=== PATIENT | female | born 1955 | race Caucasian/White ===

== ENCOUNTER → 2020-08-21 14:13 | Outpatient (CLI) | payer BC, SELFPAY ==
--- NOTE | 2020-08-21 14:17 | DI.RAD.S_ITS ---
PROCEDURE: XR LUMBAR SPINE 2-3V INDICATIONS: back injury TECHNIQUE: 3 views of the lumbar spine were acquired. COMPARISON: None. FINDINGS: Bones: Transitional anatomy present. There are hypoplastic ribs associated with T12, and partial sacralization of the L5 vertebral body. Wedge-shaped compression fracture of T12 results in 30% anterior height loss without retropulsed fracture fragment. There is appropriate osseous mineralization present. Disc space narrowing and hypertrophic facet joints noted L3-4, L4-5 and L5-S1, and there is grade 1 anterior spondylolisthesis present at L4-5. Soft tissues: Overlying bowel gas pattern is normal. No suspicious soft tissue calcifications. IMPRESSION: 1. T12 compression fracture, uncertain age. 2. Degenerative disc disease and arthropathy the lower lumbar spine resulting in L4-5 anterior spondylolisthesis. 3. Transitional anatomy. Hypoplastic T12 ribs and partial sacralization of the L5 vertebral body Dictated by: Monroe Henning M.D. on 08/21/2020 at 14:35 Approved by: Monroe Henning M.D. on 08/21/2020 at 14:40
== END ==
PROVIDERS: PCP Internal Medicine; Referring Provider Physician Assistant; Visit Provider Physician Assistant
DX: M54.9 Dorsalgia, unspecified (principal); M48.54XA Collapsed vertebra, not elsewhere classified, thoracic region, initial encounter for fracture; M51.37 Other intervertebral disc degeneration, lumbosacral region; M51.36 Other intervertebral disc degeneration, lumbar region; M47.816 Spondylosis without myelopathy or radiculopathy, lumbar region; M47.817 Spondylosis without myelopathy or radiculopathy, lumbosacral region; M43.16 Spondylolisthesis, lumbar region; M43.27 Fusion of spine, lumbosacral region
CPT/HCPCS: 72100

== ENCOUNTER → 2020-09-24 10:48 | Outpatient (CLI) | payer BC, SELFPAY ==
--- NOTE | 2020-09-24 10:49 | DI.CT.S_ITS ---
PROCEDURE: CT CHEST ABD PEL W CON INDICATIONS: Restaging, endometrial cancer. Outside comparison CT scanning has been requested but has not yet become available for review. This study can be supplemented by an addendum report when the comparison studies become available. TECHNIQUE: After the administration of oral and intravenous contrast, axial sections acquired from the supraclavicular neck to the pubic symphysis. Coronal and sagittal reformats were performed. For radiation dose reduction, the following was used: automated exposure control, adjustment of mA and/or kV according to patient size. COMPARISON: None. FINDINGS: Image quality: Excellent. CHEST: Lower Neck: No enlarged lymph nodes. Thyroid: Not well seen. Axillae: No enlarged lymph nodes. Chest Wall: Unremarkable. Lungs and Airways: No consolidation but there are several pulmonary nodules, as discussed: 1. Upper outer right upper lobe series 3, image 78 5 x 7 mm solid noncalcified mildly spiculated nodule. 2. Subpleural lateral left upper lobe nodule, series 3, image 104, mildly lobulated, and measuring up to 1.5 cm in maximal dimension abutting the pleural surface. 3. Centrally cavitary 1.5 by 1.1 cm nodule anterolateral left upper lobe seen on series 3, image 165. 4. . 3 x 4 mm nodule left lower lobe anteriorly, series 3, image 240. Pleura: No pneumothorax or pleural effusions. Heart: Heart size is normal. No pericardial effusion. Thoracic Vessels: The aorta and pulmonary arteries demonstrate normal size. Mediastinum and Josephine: No enlarged lymph nodes. Esophagus: No wall thickening. No hiatal hernia. ABDOMEN: Liver: Unremarkable. Gallbladder: Unremarkable. Biliary ducts: Unremarkable. Pancreas: Unremarkable. Spleen: Unremarkable. Adrenal Glands: Unremarkable. Kidneys and Ureters: Unremarkable. Stomach and Bowel: Stomach, small bowel loops, and colon are unremarkable. Peritoneum: No abnormal intraperitoneal fluid. No free air. Ventral Wall: No hernia. Abdominal Nodes: No retroperitoneal or mesenteric adenopathy by size criteria. Vessels: Aorta and inferior vena cava are normal in size. PELVIS: Pelvic Organs: Unremarkable. Bladder: Unremarkable. Pelvic Nodes: No enlarged lymph nodes. Miscellaneous: No inguinal hernias are seen. Bones: Unremarkable except for a superior endplate mild compression fracture at the low thoracic spine, likely T12, which does not appear to represent a pathologic fracture. IMPRESSION: 1. Four separate pulmonary nodules, worrisome for metastatic disease. 2. Within the chest abdomen and pelvis no additional evidence of metastatic disease is found. 3. What appears to be a likely osteoporotic compression fracture is seen at the upper aspect of what appears to be T12. 4. Please note that there is a comparison study that has been unavailable for review. An addendum to this report can be generated should that study become available. Dictated by: Vic Cummings M.D. on 10/01/2020 at 13:31 Approved by: Vic Cummings M.D. on 10/01/2020 at 14:15
== END ==
PROVIDERS: PCP Internal Medicine; Referring Provider Internal Medicine Medical Oncology; Visit Provider Internal Medicine Medical Oncology
DX: C54.1 Malignant neoplasm of endometrium (principal); R91.8 Other nonspecific abnormal finding of lung field; M48.54XA Collapsed vertebra, not elsewhere classified, thoracic region, initial encounter for fracture
CPT/HCPCS: 71260; 74177

== ENCOUNTER 2020-10-23 10:05 | Emergency (ER) | payer BC, SELFPAY ==
[2020-10-23] VITALS (10 sets, daily range): BP systolic 137–154; BP diastolic 68–80; PULSE 75–94; RESP 15–16; TEMP 37; O2SAT 94–99; BMI 33.3
[2020-10-23 11:22] LABS: Alanine Aminotransferase 18 IU/L (<35); Albumin 4.4 g/dL (3.5-5.0); Albumin Globulin Ratio 1.7 (1.0-2.8); Alkaline Phosphatase 50 U/L (38-126); Aspartate Aminotransferase 24 IU/L (14-36); BUN Creatinine Ratio 38.5 (6-22); Bilirubin Total 0.5 mg/dL (0.2-1.3); Blood Urea Nitrogen 20 mg/dL (7-17); Calcium 9.8 mg/dL (8.4-10.2); Carbon Dioxide 31 mmol/L (22-32); Chloride 102 mmol/L (98-107); Estimated Glomerular Filt Rate > 60.0 mL/min (>60); Globulin 2.6 g/dL (1.7-4.1); Glucose 111 mg/dL (80-110); HEMOLYSIS < 15 (0-50); Lipase 45 U/L (23-300); Sodium 138 mmol/L (137-145)
[2020-10-23 11:27] LABS: Bacteria Urine Occasional (0-1); Culture Indicated Urine Cult Not Indicated; RBC Urine 1-5/HPF (0-5/HPF); Squamous Epithelial Cell Urine 0-1 /HPF (0-5/HPF); WBC Urine 0-1/HPF (0-5/HPF)
[2020-10-23 11:27] LABS: Add Manual Diff / Slide Review NO; Basophils Absolute Auto 0 /uL (0-100); Basophils Percent Auto 0.2 % (0-2); Eosinophils Absolute Auto 0 /uL (0-450); Eosinophils Percent Auto 0.1 % (2-4); Hematocrit 36.8 % (36-46); Hemoglobin 12.5 g/dL (12.0-16.0); Lymphocytes Absolute Auto 300 /uL (1100-4500); Lymphocytes Percent Auto 2.7 % (25-40); Mean Corpuscular HGB Conc 34.1 % (30-36); Mean Corpuscular Hemoglobin 32.9 PG (26-34); Mean Corpuscular Volume 96.5 fL (80-100); Monocytes Absolute Auto 600 /uL (0-900); Monocytes Percent Auto 5.3 % (3-14); Neutrophils Absolute Auto 9900 /uL (1500-7000); Neutrophils Percent Auto 91.7 % (50-75); Platelet Count 349 X10^3/uL (150-400); Red Blood Cell Count 3.81 X10^6/uL (4.0-5.2); White Blood Cell Count 10.8 X10^3/uL (4.5-11.0)
--- NOTE | 2020-10-23 12:30 | DI.CT.S_ITS ---
PROCEDURE: CT KIDNEY URETER BLADDER (KUB) INDICATIONS: possible kidney stone TECHNIQUE: Axial sections were acquired from the lung bases to the pubic symphysis. Coronal and sagittal reformats were performed. For radiation dose reduction, the following was used: automated exposure control, adjustment of mA and/or kV according to patient size. COMPARISON: Outside Facility, RG, CT ABDOMEN/PELVIS WITH CONTRAST, 04/28/2020, 9:45. FINDINGS: Image quality: Excellent. Lung bases: There is elevation of the right hemidiaphragm with atelectasis of the right lung base. Heart: No significant findings. URINARY: Right Kidney: No stones or hydronephrosis. Right Ureter: No hydroureter. Left Kidney: No stones or hydronephrosis. Left Ureter: No hydroureter. Bladder: Normal wall thickness. No stones. ABDOMEN: Liver: Subcentimeter hypodensities in the liver are stable and most likely benign. Gallbladder: Unremarkable. Biliary ducts: Unremarkable. Pancreas: Unremarkable. Spleen: A low-density lesion in the anterior spleen is stable and considered benign. Adrenal Glands: A 1.5 x 1.0 cm nodule is seen in the left adrenal. There is mild nodular thickening of the right adrenal. Stomach and Bowel: Stomach, small bowel loops, and colon are unremarkable. Peritoneum: No abnormal intraperitoneal fluid. No free air. Ventral Wall: No hernia. Abdominal Nodes: No enlarged retroperitoneal or mesenteric lymph nodes. Vessels: Aorta and inferior vena cava are normal in size. Mild aortic atherosclerotic calcifications. There is marked tortuosity of the common iliac arteries. PELVIS: Pelvic Organs: Status post hysterectomy. Pelvic Nodes: Unremarkable. Miscellaneous: No inguinal hernias are seen. Bones: Degenerative changes are seen in the included spine. There is grade 1 anterolisthesis of L4 on L5. Mild compression fracture is seen at the superior endplate of the T12 vertebral body that is new when compared to the CT from 04/28/2020. There is approximately 25 % loss of vertebral body height. There is fatty infiltration of the bilateral gluteus medius and minimus muscles. IMPRESSION: 1. No renal or ureteral calculus or hydronephrosis. 2. Mild T12 compression fracture is new when compared to the CT from 04/28/2020. Dictated by: Jared Gardner M.D. on 10/23/2020 at 13:09 Approved by: Jared Gardner M.D. on 10/23/2020 at 13:22
--- NOTE | 2020-10-23 12:32 | ED_ITS ---
HPI - Abdominal Pain <Won Cotter PA-C - Last Filed: 10/23/20 14:36> General Chief Complaint: Abdominal Pain Stated Complaint: nausea/vomitting, history of cancer and bowel obst Time Seen by Provider: 10/23/20 11:57 Source: patient Mode of arrival: Wheelchair Limitations: no limitations History of Present Illness HPI narrative: Genie presents today with chief complaint abdominal pain and nausea and vomiting that started suddenly at midnight and lasted till about 730 this morning. She reports continued nausea but reports that the pain has improved. She also had urinary frequency at that time. She has not had anything by mouth today because of her persistent nausea. She reports that this feels similar to a bowel obstruction that she experienced but slightly different. She reports that she had a bowel movement this morning and has had an episode of passing gas today. She denies any chest pain, diaphoresis, fever, cough, sore throat, fatigue, shortness of breath, decreased exercise capacity, or any other acute concerns or complaints at this time. Related Data Home Medications Medication Instructions Recorded Confirmed calcium carbonate 600 mg (1,500 1 tab BID 09/16/20 10/21/20 mg)-vitamin D3 200 unit tablet Previous Rx's Medication Instructions Recorded methocarbamol 500 mg tablet 500 - 1,000 mg PO TID PRN #60 tab 09/04/20 cholecalciferol (vitamin D3) 50 50 mcg PO DAILY #90 cap 10/21/20 mcg (2,000 unit) capsule clobetasol 0.05 % topical ointment 1 applic TOPICAL BEDTIME #60 g 10/21/20 hydrochlorothiazide 25 mg tablet 12.5 mg PO BID #90 tab 10/21/20 levothyroxine 112 mcg tablet 112 mcg PO DAILY #90 tab 10/21/20 magnesium chloride 64 mg 128 mg PO BID #180 tab 10/21/20 (magnesium chloride) tablet,delayed release rivaroxaban 10 mg tablet (Xarelto) 10 mg PO DAILY #90 tab 10/21/20 simvastatin 10 mg tablet 10 mg PO DAILY #90 tab 10/21/20 ondansetron 4 mg disintegrating 4 mg PO Q6H PRN #10 tab 10/23/20 tablet Allergies Allergy/AdvReac Type Severity Reaction Status Date / Time carboplatin Allergy Severe Full Body Verified 10/23/20 10:15 Rash oxaliplatin Allergy Severe Anaphylaxsi Verified 10/23/20 10:15 s valacyclovir [From Valtrex] Allergy Intermediate Labored Verified 10/23/20 10:15 Breathing cefuroxime [From Ceftin] AdvReac Severe Diarrhea Verified 10/23/20 10:15 oxycodone AdvReac Intermediate Severe Verified 10/23/20 10:15 Headache/Nausea Review of Systems <Won Cotter PA-C - Last Filed: 10/23/20 14:36> Review of Systems Narrative: As per HPI Patient History <Won Cotter PA-C - Last Filed: 10/23/20 14:36> Medical History (Updated 10/23/20 @ 14:13 by Won Cotter PA-C) Acquired hypothyroidism Acquired lymphedema of leg Compression fracture of T12 vertebra DVT (deep venous thrombosis) Endometrial cancer Essential hypertension GERD without esophagitis H/O adenomatous polyp of colon Hematuria Lichen sclerosus et atrophicus of the vulva Mixed hyperlipidemia Ocular migraine Osteopenia Spondylisthesis SVC syndrome Urinary incontinence Vitreous detachment of both eyes Surgical History (Updated 09/17/20 @ 08:56 by Antonio Barros MD) Status post abdominal hysterectomy and salpingo-oophorectomy (~07/2009) Status post tonsillectomy and adenoidectomy (~1961) Social History Smoking Status: Never smoker Smoking Status: Never smoker Exam <Won Cotter PA-C - Last Filed: 10/23/20 14:36> Narrative Exam Narrative: Exam Narrative: Const General: cooperative, healthy appearing, comfortable, no acute distress, well developed and well groomed Nutritional Appearance: Elevated BMI Orientation: alert and oriented x3 HENMT Head: normal to inspection and atraumatic Ears: hearing grossly normal bilaterally Nose: external nose normal and nares normal Face and sinus: normal facial exam Neck Neck: normal visual inspection and supple Resp Effort & Inspection: normal respiratory effort, able to speak in complete sentences, no audible wheezes, not labored, no nasal flaring and no respiratory distress, clear to auscultation bilaterally Cardiac Regular rate and rhythm, no discernible murmurs, rubs or gallops GI Nondistended, nontender to palpation, normal bowel sounds. No CVA tenderness noted Neuro General: alert, oriented x3, gait normal, tone normal and moves all extremities Cognition: normal cognition Speech: speech normal Gait: normal gait Psych Appearance: grossly normal and well kempt Mental Status: mental status grossly normal Speech and Movement: speech and movement normal Mood: congruent mood Affect: normal affect Initial Vital Signs Initial Vital Signs: Vital Signs Temperature 98.6 F 10/23/20 10:12 Pulse Rate 75 10/23/20 10:12 Respiratory Rate 15 10/23/20 10:12 Blood Pressure 141/80 H 10/23/20 10:12 Pulse Oximetry 96 10/23/20 10:12 <Rupali Cao DO - Last Filed: 10/26/20 15:19> Initial Vital Signs Initial Vital Signs: Vital Signs Temperature 98.6 F 10/23/20 10:12 Pulse Rate 75 10/23/20 10:12 Respiratory Rate 15 10/23/20 10:12 Blood Pressure 141/80 H 10/23/20 10:12 Pulse Oximetry 96 10/23/20 10:12 Course <Won Cotter PA-C - Last Filed: 10/23/20 14:36> Orders Ordered: Discontinued Medications Sodium Chloride (Normal Saline 0.9%) 1,000 mls @ 1,000 mls/hr IV BOLUS ONE Stop: 10/23/20 13:34 Last Infusion: 10/23/20 14:15 Dose: 0 mls/hr Documented by: Admin: 10/23/20 12:55 Dose: 1,000 mls/hr Documented by: SOFÍA Ondansetron HCl (Ondansetron 4 Mg/2 Ml Inj) 4 mg IV Q2HR PRN PRN Reason: Nausea And Vomiting Last Admin: 10/23/20 12:49 Dose: 4 mg Documented by: SOFÍA Vital Signs Vital signs: Vital Signs - 8 hr 10/23/20 10:12 10/23/20 11:06 10/23/20 11:30 Temperature 98.6 F Pulse Rate 75 76 86 Respiratory Rate 15 Blood Pressure 141/80 H 137/68 Pulse Oximetry 96 97 94 10/23/20 12:00 10/23/20 12:30 10/23/20 13:15 Temperature Pulse Rate 81 87 93 H Respiratory Rate 16 Blood Pressure 147/74 H 151/76 H Pulse Oximetry 96 98 95 10/23/20 13:16 10/23/20 13:30 10/23/20 14:00 Temperature Pulse Rate 94 H 86 77 Respiratory Rate Blood Pressure 144/69 H Pulse Oximetry 97 99 97 10/23/20 14:22 Temperature Pulse Rate 76 Respiratory Rate 16 Blood Pressure 154/74 H Pulse Oximetry 99 <Rupali Cao DO - Last Filed: 10/26/20 15:19> Orders Ordered: Discontinued Medications Sodium Chloride (Normal Saline 0.9%) 1,000 mls @ 1,000 mls/hr IV BOLUS ONE Stop: 10/23/20 13:34 Last Infusion: 10/23/20 14:15 Dose: 0 mls/hr Documented by: Admin: 10/23/20 12:55 Dose: 1,000 mls/hr Documented by: SOFÍA Ondansetron HCl (Ondansetron 4 Mg/2 Ml Inj) 4 mg IV Q2HR PRN PRN Reason: Nausea And Vomiting Last Admin: 10/23/20 12:49 Dose: 4 mg Documented by: SOFÍA Vital Signs Vital signs: Vital Signs - 8 hr 10/23/20 10:12 10/23/20 11:06 10/23/20 11:30 Temperature 98.6 F Pulse Rate 75 76 86 Respiratory Rate 15 Blood Pressure 141/80 H 137/68 Pulse Oximetry 96 97 94 10/23/20 12:00 10/23/20 12:30 10/23/20 13:15 Temperature Pulse Rate 81 87 93 H Respiratory Rate 16 Blood Pressure 147/74 H 151/76 H Pulse Oximetry 96 98 95 10/23/20 13:16 10/23/20 13:30 10/23/20 14:00 Temperature Pulse Rate 94 H 86 77 Respiratory Rate Blood Pressure 144/69 H Pulse Oximetry 97 99 97 10/23/20 14:22 Temperature Pulse Rate 76 Respiratory Rate 16 Blood Pressure 154/74 H Pulse Oximetry 99 MDM - Abdominal Pain <Won Cotter PA-C - Last Filed: 10/23/20 14:36> Lab Data Result diagrams: 10/23/20 11:00 10/23/20 11:00 Labs: Lab Results 10/23/20 10/23/20 10/23/20 Range/Units 10:41 11:00 11:00 WBC 10.8 (4.5-11.0) X10^3/uL RBC 3.81 L (4.0-5.2) X10^6/uL Hgb 12.5 (12.0-16.0) g/dL Hct 36.8 (36-46) % MCV 96.5 (80-100) fL MCH 32.9 (26-34) PG MCHC 34.1 (30-36) % RDW 13.0 (11.6-14.8) % Plt Count 349 (150-400) X10^3/uL Neut % (Auto) 91.7 H (50-75) % Lymph % (Auto) 2.7 L (25-40) % Laurel % (Auto) 5.3 (3-14) % Eos % (Auto) 0.1 L (2-4) % Baso % (Auto) 0.2 (0-2) % Neut # (Auto) 9900 H (0803-2627) /uL Lymph # (Auto) 300 L (1942-4768) /uL Laurel # (Auto) 600 (0-900) /uL Eos # (Auto) 0 (0-450) /uL Baso # (Auto) 0 (0-100) /uL Sodium 138 (137-145) mmol/L Potassium 3.0 L (3.4-5.1) mmol/L Chloride 102 (98-107) mmol/L Carbon Dioxide 31 (22-32) mmol/L BUN 20 H (7-17) mg/dL Creatinine 0.52 (0.52-1.04) mg/dL Estimated GFR > 60.0 (>60) mL/min BUN/Creatinine Ratio 38.5 H (6-22) Glucose 111 H (80-110) mg/dL Calcium 9.8 (8.4-10.2) mg/dL Total Bilirubin 0.5 (0.2-1.3) mg/dL AST 24 (14-36) IU/L ALT 18 (<35) IU/L Alkaline Phosphatase 50 (38-126) U/L Total Creatine Kinase (30-135) U/L CK-MB (CK-2) CK-MB (CK-2) Rel Index Troponin I (0.01-0.034) ng/mL Total Protein 7.0 (6.3-8.2) g/dL Albumin 4.4 (3.5-5.0) g/dL Globulin 2.6 (1.7-4.1) g/dL Albumin/Globulin Ratio 1.7 (1.0-2.8) Lipase 45 (23-300) U/L Urine RBC 1-5/hpf (0-5/HPF) Urine WBC 0-1/hpf (0-5/HPF) Ur Squamous Epith Cells 0-1 /hpf (0-5/HPF) Urine Bacteria Occasional (0-1) (None) Ur Culture Indicated? Cult not indicated 10/23/20 Range/Units 11:00 WBC (4.5-11.0) X10^3/uL RBC (4.0-5.2) X10^6/uL Hgb (12.0-16.0) g/dL Hct (36-46) % MCV (80-100) fL MCH (26-34) PG MCHC (30-36) % RDW (11.6-14.8) % Plt Count (150-400) X10^3/uL Neut % (Auto) (50-75) % Lymph % (Auto) (25-40) % Laurel % (Auto) (3-14) % Eos % (Auto) (2-4) % Baso % (Auto) (0-2) % Neut # (Auto) (2111-4608) /uL Lymph # (Auto) (9301-7893) /uL Laurel # (Auto) (0-900) /uL Eos # (Auto) (0-450) /uL Baso # (Auto) (0-100) /uL Sodium (137-145) mmol/L Potassium (3.4-5.1) mmol/L Chloride (98-107) mmol/L Carbon Dioxide (22-32) mmol/L BUN (7-17) mg/dL Creatinine (0.52-1.04) mg/dL Estimated GFR (>60) mL/min BUN/Creatinine Ratio (6-22) Glucose (80-110) mg/dL Calcium (8.4-10.2) mg/dL Total Bilirubin (0.2-1.3) mg/dL AST (14-36) IU/L ALT (<35) IU/L Alkaline Phosphatase (38-126) U/L Total Creatine Kinase 80 (30-135) U/L CK-MB (CK-2) TNP CK-MB (CK-2) Rel Index TNP Troponin I < 0.012 (0.01-0.034) ng/mL Total Protein (6.3-8.2) g/dL Albumin (3.5-5.0) g/dL Globulin (1.7-4.1) g/dL Albumin/Globulin Ratio (1.0-2.8) Lipase (23-300) U/L Urine RBC (0-5/HPF) Urine WBC (0-5/HPF) Ur Squamous Epith Cells (0-5/HPF) Urine Bacteria (None) Ur Culture Indicated? Point of care testing: Urine Dip Bedside Urine Glucose Negative Bedside Urine Bilirubin - Negative Bedside Urine Ketone +++ 80 Urine Specific Owings 1.030 Bedside Urine Occult Blood ++ Bedside Urine pH 6.0 Bedside Urine Protein - Negative Bedside Urine Urobilinogen - Negative Bedside Urine Nitrite - Negative Bedside Urine Leukocytes - Negative Esterase MDM Narrative Medical decision making narrative: Her physical examination is normal with no reproducible abdominal pain, CVA tenderness, or masses noted. She does not have an elevation in her white blood cells. She had hematuria as well as ketonuria in addition to hypokalemia. Her symptoms improved with a single L of normal saline IV as well as Zofran administration here in the emergency department. She is passing gas and does not have any reproducible abdominal pain. I suspect a bowel obstruction is less likely at this time. CT does not show any acute intra-abdominal pathology nor any kidney stones. She does not have any significant evidence of urinary tract infection. Will treat for acute nausea vomiting with strict ER return precautions well described. Patient verbalizes u nderstanding and agrees to plan and has no further concerns at this time. Thank you A [id number] system was used with the dictation of this note. Please disregard any spelling or grammatical errors. <Rupali Cao, DO - Last Filed: 10/26/20 15:19> Lab Data Labs: Lab Results 10/23/20 10/23/20 10/23/20 Range/Units 10:41 11:00 11:00 WBC 10.8 (4.5-11.0) X10^3/uL RBC 3.81 L (4.0-5.2) X10^6/uL Hgb 12.5 (12.0-16.0) g/dL Hct 36.8 (36-46) % MCV 96.5 (80-100) fL MCH 32.9 (26-34) PG MCHC 34.1 (30-36) % RDW 13.0 (11.6-14.8) % Plt Count 349 (150-400) X10^3/uL Neut % (Auto) 91.7 H (50-75) % Lymph % (Auto) 2.7 L (25-40) % Laurel % (Auto) 5.3 (3-14) % Eos % (Auto) 0.1 L (2-4) % Baso % (Auto) 0.2 (0-2) % Neut # (Auto) 9900 H (2176-1148) /uL Lymph # (Auto) 300 L (8811-8457) /uL Laurel # (Auto) 600 (0-900) /uL Eos # (Auto) 0 (0-450) /uL Baso # (Auto) 0 (0-100) /uL Sodium 138 (137-145) mmol/L Potassium 3.0 L (3.4-5.1) mmol/L Chloride 102 (98-107) mmol/L Carbon Dioxide 31 (22-32) mmol/L BUN 20 H (7-17) mg/dL Creatinine 0.52 (0.52-1.04) mg/dL Estimated GFR > 60.0 (>60) mL/min BUN/Creatinine Ratio 38.5 H (6-22) Glucose 111 H (80-110) mg/dL Calcium 9.8 (8.4-10.2) mg/dL Total Bilirubin 0.5 (0.2-1.3) mg/dL AST 24 (14-36) IU/L ALT 18 (<35) IU/L Alkaline Phosphatase 50 (38-126) U/L Total Creatine Kinase (30-135) U/L CK-MB (CK-2) CK-MB (CK-2) Rel Index Troponin I (0.01-0.034) ng/mL Total Protein 7.0 (6.3-8.2) g/dL Albumin 4.4 (3.5-5.0) g/dL Globulin 2.6 (1.7-4.1) g/dL Albumin/Globulin Ratio 1.7 (1.0-2.8) Lipase 45 (23-300) U/L Urine RBC 1-5/hpf (0-5/HPF) Urine WBC 0-1/hpf (0-5/HPF) Ur Squamous Epith Cells 0-1 /hpf (0-5/HPF) Urine Bacteria Occasional (0-1) (None) Ur Culture Indicated? Cult not indicated 10/23/20 Range/Units 11:00 WBC (4.5-11.0) X10^3/uL RBC (4.0-5.2) X10^6/uL Hgb (12.0-16.0) g/dL Hct (36-46) % MCV (80-100) fL MCH (26-34) PG MCHC (30-36) % RDW (11.6-14.8) % Plt Count (150-400) X10^3/uL Neut % (Auto) (50-75) % Lymph % (Auto) (25-40) % Laurel % (Auto) (3-14) % Eos % (Auto) (2-4) % Baso % (Auto) (0-2) % Neut # (Auto) (9719-7833) /uL Lymph # (Auto) (4728-4778) /uL Laurel # (Auto) (0-900) /uL Eos # (Auto) (0-450) /uL Baso # (Auto) (0-100) /uL Sodium (137-145) mmol/L Potassium (3.4-5.1) mmol/L Chloride (98-107) mmol/L Carbon Dioxide (22-32) mmol/L BUN (7-17) mg/dL Creatinine (0.52-1.04) mg/dL Estimated GFR (>60) mL/min BUN/Creatinine Ratio (6-22) Glucose (80-110) mg/dL Calcium (8.4-10.2) mg/dL Total Bilirubin (0.2-1.3) mg/dL AST (14-36) IU/L ALT (<35) IU/L Alkaline Phosphatase (38-126) U/L Total Creatine Kinase 80 (30-135) U/L CK-MB (CK-2) TNP CK-MB (CK-2) Rel Index TNP Troponin I < 0.012 (0.01-0.034) ng/mL Total Protein (6.3-8.2) g/dL Albumin (3.5-5.0) g/dL Globulin (1.7-4.1) g/dL Albumin/Globulin Ratio (1.0-2.8) Lipase (23-300) U/L Urine RBC (0-5/HPF) Urine WBC (0-5/HPF) Ur Squamous Epith Cells (0-5/HPF) Urine Bacteria (None) Ur Culture Indicated? Point of care testing: Urine Dip Bedside Urine Glucose Negative Bedside Urine Bilirubin - Negative Bedside Urine Ketone +++ 80 Urine Specific Owings 1.030 Bedside Urine Occult Blood ++ Bedside Urine pH 6.0 Bedside Urine Protein - Negative Bedside Urine Urobilinogen - Negative Bedside Urine Nitrite - Negative Bedside Urine Leukocytes - Negative Esterase Discharge Plan Departure Patient Disposition: Home Clinical Impression: Acute hypokalemia Nausea & vomiting Qualifiers: Vomiting type: unspecified Vomiting Intractability: non-intractable Qualified Code(s): R11.2 - Nausea with vomiting, unspecified Instructions: DI for Hypokalemia, Nausea and Vomiting-Adult Activity Restrictions/Additional Instructions: It was very nice to meet you this afternoon. Your evaluation today has been reassuring. Your potassium is a bit low but this is likely due to the vomiting that you were experiencing. Please use the medication that is prescribed to help stay well-hydrated and help with your nausea. I expect your symptoms to improve over the next 1-2 days. If you experience worsening symptoms, fever or have any additional concerns or complaints do not hesitate return for re-evaluat ion. Thank you Won Cotter PA-C Prescriptions: New ondansetron 4 mg tablet,disintegrating 4 mg PO Q6H PRN (Reason: nausea and vomiting) Qty: 10 RF: 0 No Action methocarbamol 500 mg tablet 500 - 1,000 mg PO TID PRN (Reason: back pain) Qty: 60 RF: 2 hydrochlorothiazide 25 mg tablet 12.5 mg PO BID Qty: 90 RF: 3 levothyroxine 112 mcg tablet 112 mcg PO DAILY Qty: 90 RF: 3 Xarelto 10 mg tablet 10 mg PO DAILY Qty: 90 RF: 3 simvastatin 10 mg tablet 10 mg PO DAILY Qty: 90 RF: 3 magnesium chloride 64 mg tablet,delayed release (DR/EC) 128 mg PO BID Qty: 180 RF: 3 cholecalciferol (vitamin D3) 50 mcg (2,000 unit) capsule 50 mcg PO DAILY Qty: 90 RF: 3 clobetasol 0.05 % ointment 1 applic topical BEDTIME Qty: 60 RF: 1 calcium carbonate-vitamin D3 [Calcium + D] 600 mg(1,500mg) -200 unit Tablet 1 tab BID RF: 0 Referrals: Héctor Whalen MD [Primary Care Provider] - <Rupali Cao DO - Last Filed: 10/26/20 15:19> Cosign ED Attending Cosignature Attestation: I was immediately available in the department for consultation. Documentation has been reviewed.
[2020-10-23 12:42] LABS: Creatine Kinase 80 U/L (30-135)
[2020-10-23] MEDS: ONDANSETRON 4 MG/2 ML INJ IV (12:49)
[2020-10-23 12:54] LABS: Troponin I < 0.012 ng/mL (0.01-0.034)
[2020-10-23] MEDS: SODIUM CHLORIDE 0.9% 1,000 ML 1000 ML IV (12:55)
== END 2020-10-23 14:37 | disposition home or self-care (01) ==
PROVIDERS: Emergency Medicine; Emergency Provider Physician Assistant; PCP Internal Medicine
DX: E87.6 Hypokalemia (principal); R11.2 Nausea with vomiting, unspecified; R10.9 Unspecified abdominal pain
CPT/HCPCS: 36415; 74176; 80053; 81003; 81015; 82550; 83690; 84484; 85025; 93005; 93010; 96361; 96374; 99284; J2405

== ENCOUNTER → 2020-12-11 15:21 | Outpatient (CLI) | payer BC, SELFPAY ==
--- NOTE | 2020-12-11 15:22 | DI.MG.S_ITS ---
BILATERAL DIGITAL SCREENING MAMMOGRAM 3D/2D WITH CAD: 12/11/2020 CLINICAL: Routine screening. Family history of breast cancer. Comparison is made to exams dated: 07/24/2019 mammogram, 04/25/2018 mammogram, and 04/18/2017 mammogram - outside. The tissue of both breasts is predominantly fatty. Current study was also evaluated with a Computer Aided Detection (CAD) system. No significant masses, calcifications, or other findings are seen in either breast. There has been no significant interval change. IMPRESSION: NEGATIVE There is no mammographic evidence of malignancy. A 1 year screening mammogram is recommended. This exam was interpreted at Station ID: [id number]. NOTE: For mammograms, a report in lay terms will be sent to the patient. Approximately 15% of breast malignancies will not be visualized mammographically. In the management of a palpable breast mass, a negative mammogram must not discourage biopsy of a clinically suspicious lesion. Electronically Signed By: Dennis gold/arthur:12/11/2020 17:00:02 letter sent: Normal Exam ACR BI-RADS Category 1: Negative [id number]
== END ==
PROVIDERS: PCP Internal Medicine; Referring Provider Internal Medicine; Visit Provider Internal Medicine
DX: Z12.31 Encounter for screening mammogram for malignant neoplasm of breast (principal); Z80.3 Family history of malignant neoplasm of breast
CPT/HCPCS: 77063; 77067

== ENCOUNTER → 2021-01-09 07:24 | Outpatient (CLI) | payer BC, SELFPAY ==
[2021-01-09 07:55] LABS: Add Manual Diff / Slide Review NO; Basophils Absolute Auto 0 /uL (0-100); Basophils Percent Auto 0.7 % (0-2); Eosinophils Absolute Auto 200 /uL (0-450); Eosinophils Percent Auto 3.6 % (2-4); Hematocrit 35.5 % (36-46); Lymphocytes Absolute Auto 900 /uL (1100-4500); Lymphocytes Percent Auto 17.4 % (25-40); Mean Corpuscular HGB Conc 33.7 % (30-36); Mean Corpuscular Hemoglobin 32.2 PG (26-34); Mean Corpuscular Volume 95.6 fL (80-100); Monocytes Absolute Auto 400 /uL (0-900); Monocytes Percent Auto 6.9 % (3-14); Neutrophils Absolute Auto 3800 /uL (1500-7000); Neutrophils Percent Auto 71.4 % (50-75); Platelet Count 372 X10^3/uL (150-400); Red Blood Cell Count 3.71 X10^6/uL (4.0-5.2); Red Cell Distribution Width 13.3 % (11.6-14.8); White Blood Cell Count 5.3 X10^3/uL (4.5-11.0)
[2021-01-09 08:10] LABS: Alanine Aminotransferase 15 IU/L (<35); Albumin 3.8 g/dL (3.5-5.0); Albumin Globulin Ratio 1.7 (1.0-2.8); Alkaline Phosphatase 83 U/L (38-126); Aspartate Aminotransferase 19 IU/L (14-36); BUN Creatinine Ratio 21.8 (6-22); Bilirubin Total 0.5 mg/dL (0.2-1.3); Blood Urea Nitrogen 17 mg/dL (7-17); Calcium 9.6 mg/dL (8.4-10.2); Carbon Dioxide 28 mmol/L (22-32); Chloride 105 mmol/L (98-107); Estimated Glomerular Filt Rate > 60.0 mL/min (>60); Globulin 2.2 g/dL (1.7-4.1); Glucose 95 mg/dL (80-110); HEMOLYSIS < 15 (0-50); Potassium 4.3 mmol/L (3.4-5.1); Sodium 140 mmol/L (137-145)
--- NOTE | 2021-01-09 08:34 | DI.CT.S_ITS ---
PROCEDURE: CT CHEST ABD PEL W CON INDICATIONS: endometrial cancer metastatic disease surveillance TECHNIQUE: After the administration of oral and intravenous contrast, axial sections acquired from the supraclavicular neck to the pubic symphysis. Coronal and sagittal reformats were performed. For radiation dose reduction, the following was used: automated exposure control, adjustment of mA and/or kV according to patient size. COMPARISON: [facility], CT, CT KIDNEY URETER BLADDER (KUB), 10/23/2020, 12:58. Outside Facility, RG, CT THORAX WITH CONTRAST, 07/21/2020, 10:32. Outside Facility, RG, CT ABDOMEN/PELVIS WITH CONTRAST, 04/28/2020, 9:45. Outside Facility, RG, CT THORAX WITH CONTRAST, 01/28/2020, 11:46. [facility], CT, CT CHEST ABD PEL W CON, 09/24/2020, 11:49. FINDINGS: CHEST: Lungs: Multiple bilateral pulmonary nodules are seen, the largest measuring up to 1.1 x 1.7 cm along the anterior left upper lobe pleura previously 1.1 x 1.2 cm. There is internal lucency suggestive of a cavitation or necrosis. Additional lingular nodule measuring 1.3 x 1.2 cm on image 145/3 appears minimally increased in size also demonstrating internal lucency. Additional sub 5 mm nodules including 3 mm anterior right upper lobe nodule in image 60/3 grossly unchanged. 4 mm nodule involving the posterior right upper lobe is unchanged. Please see the montage image for detailed locations and image/series numbers. Scattered subsegmental atelectasis and/or scarring. No focal consolidation. Airway thickening in keeping with nonspecific bronchitis and/or reactive airways disease. 2 mm nodule involving the lingula on image 221/3 is unchanged. Pleura: No pleural effusions or pneumothorax. Heart: Heart size is normal. No pericardial effusion. Chest nodes: Normal. Thyroid gland: Not well seen Aorta: Normal in size. Scattered atheromatous calcifications in the aorta. Pulmonary arteries: Normal. Esophagus: Normal. ABDOMEN: Liver: Subcentimeter hepatic foci are statistically cysts or hemangiomas, although technically too small to characterize accurately and therefore nonspecific. Overall, unchanged appearance of the liver since the prior study dated 09/24/20. Gallbladder: Unremarkable. Bile ducts: Normal. Pancreas: Normal. 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 Adrenals: Subcentimeter left adrenal nodules unchanged. Right adrenal gland grossly unremarkable Kidneys and ureters: Bilateral renal cortical atrophy/scarring. No hydronephrosis. The ureters appear decompressed. Stomach and duodenum: Normal. Bowel: Large amount of stool. No evidence of bowel obstruction. Other: No free fluid or air. Abdominal nodes: No pathologic enlargement. Aorta and IVC: Normal in size. Ventral wall: Normal. PELVIS: Bladder and reproductive: Bladder partially decompressed otherwise unremarkable. No discrete pelvic mass. No adnexal mass identified. Inguinal region: No hernia. Pelvic nodes: No pathologically enlarged lymph nodes by size criteria. Bones: Diffuse spondylosis. Previously described T12 compression fracture is grossly unchanged however L1 and L3 compression fractures are new since the prior study from 10/23/20. There is diffuse osteopenia. Multilevel degenerative endplate sclerosis and spurring. Diffuse facet arthropathy. IMPRESSION: Redemonstrated multiple bilateral pulmonary lesions, with slight interval enlargement of the dominant nodules in the left lung as detailed above. The remaining subcentimeter nodules appear grossly unchanged Interval development of L1 and L3 compression fracture since 10/23/20. Please correlate clinically to point tenderness to determine the acuity. Elsewhere, stable examination in the abdomen and pelvis. Dictated by: Niko Torres M.D. on 01/09/2021 at 9:41 Approved by: Niko Torres M.D. on 01/09/2021 at 10:00
[2021-01-09 08:42] LABS: Cancer Antigen 125 5.7 U/mL (0-35)
== END ==
PROVIDERS: PCP Internal Medicine; Referring Provider Internal Medicine Medical Oncology; Visit Provider Internal Medicine Medical Oncology
DX: C54.1 Malignant neoplasm of endometrium (principal); R91.8 Other nonspecific abnormal finding of lung field; M48.56XA Collapsed vertebra, not elsewhere classified, lumbar region, initial encounter for fracture
CPT/HCPCS: 36415; 71260; 74177; 80053; 85025; 86304

== ENCOUNTER → 2021-01-13 11:09 | Outpatient (CLI) | payer BC, SELFPAY ==
[2021-01-13 13:10] LABS: Free T4, Direct Thyroxine 1.44 ng/dL (0.78-2.19)
[2021-01-13 13:24] LABS: Thyroid Stimulating Hormone 4.11 uIU/mL (0.47-4.68)
== END ==
PROVIDERS: PCP Internal Medicine; Referring Provider Internal Medicine; Visit Provider Internal Medicine
DX: E03.9 Hypothyroidism, unspecified (principal)
CPT/HCPCS: 36415; 84439; 84443